=== PATIENT | male | born 1995 | race Caucasian/White ===

== ENCOUNTER 2017-05-27 13:43 | Emergency (ER) | payer SELFPAY, OTHER ==
[2017-05-27] MEDS ORDERED: Adacel (T-DAP) 0.5 ML VIAL ONE (14:28)
[2017-05-27] MEDS ORDERED: Bacitracin Zinc 1 Packet ONE (14:46)
--- NOTE | 2017-05-27 15:22 | RAD ---
RIGHT FOOT 3 VIEWS: Date: 05/27/17 PROVIDED CLINICAL HISTORY: Stepped on brittanie nail. FINDINGS: No evidence for fracture or other acute osseous abnormality. No evidence for radiopaque foreign body. IMPRESSION: As above. POS: [facility]
== END 2017-05-27 15:06 | disposition home or self-care (01) ==
LOC: ERS 13:43
DX: S91.331A Puncture wound without foreign body, right foot, initial encounter (principal); F90.9 Attention-deficit hyperactivity disorder, unspecified type; F17.290 Nicotine dependence, other tobacco product, uncomplicated; Z79.899 Other long term (current) drug therapy; W45.0XXA Nail entering through skin, initial encounter
CPT/HCPCS: 90471; 90715